=== PATIENT | male | born 1945 | race Caucasian/White ===

== ENCOUNTER 2021-09-14 21:39 | Observation (INO) ==
[2021-09-14] MEDS ORDERED: Lidocaine -MPF 2% 5 ML VIAL ONE (22:29)
[2021-09-14] MEDS ORDERED: Ondansetron 4 MG/2 ML VIAL ONE (22:29)
[2021-09-14] MEDS ORDERED: *HR* Succinylcholine 200 MG/10 ML VIAL IVP ONE (22:29)
[2021-09-14] MEDS ORDERED: *HR* Propofol 200 MG/20 ML VIAL IVP ONE (22:29)
[2021-09-14] MEDS ORDERED: *HR* FentaNYL (PF) 100 MCG/2 ML VIAL ONE ×2 (22:29→23:56)
[2021-09-14] MEDS ORDERED: Lidocaine -MPF 4% 5 ML AMPUL ONE (22:29)
[2021-09-14] MEDS ORDERED: *HR* Midazolam HCl 5 MG/5 ML VIAL IVP ONE (23:57)
[2021-09-15] MEDS: *HR* Midazolam HCl 5 MG/5 ML VIAL IVP ONE ×2 (00:25→00:30)
[2021-09-15] MEDS: *HR* FentaNYL (PF) 100 MCG/2 ML VIAL IVP ONE ×2 (00:26→00:30)
[2021-09-15] MEDS ORDERED: Ringers Solution, Lactated 1,000 ML IVC SCH (00:30)
[2021-09-15] MEDS ORDERED: Melatonin 3 MG TABLET PO PRN (01:55)
[2021-09-15] MEDS ORDERED: Naloxone 0.4 MG/ML INJ IVP PRN (01:55)
[2021-09-15] MEDS ORDERED: *HR* Dextrose 50 % in Water (Syg) 50 ML SYRINGE IVP PRN (02:00)
[2021-09-15] MEDS ORDERED: Dextrose Gel 15 GM/37.5 ML TUBE PO PRN ×2 (02:00)
[2021-09-15] MEDS ORDERED: D5% in Water 1,000 ML IVC PRN (02:00)
[2021-09-15 04:08] LABS: Hematocrit 33.1 % (37.5-50.1); Hemoglobin 10.9 g/dL (12.9-16.9); Mean Corpuscular HGB Conc 32.9 g/dL (31.6-35.5); Mean Corpuscular Hemoglobin 29.5 pg (28.0-33.3); Mean Corpuscular Volume 89.7 fL (83.0-100.0); Mean Platelet Volume 10.4 fL (9.4-12.4); Platelet Count 189 K/mcL (140-400); Red Blood Count 3.69 M/mcL (4.19-5.50); Red Cell Distribution Width 13.2 % (11.5-14.5); White Blood Count 6.4 K/mcL (4.3-11.1)
[2021-09-15 04:30] LABS: Calcium 8.9 mg/dL (8.6-10.3); Magnesium 1.7 mg/dL (1.6-2.6); Potassium 4.7 mEq/L (3.5-5.1)
[2021-09-15] MEDS: Insulin LISPRO 300 UNITS/3 ML VIAL SUBQ SCH ×2 (04:44→11:19)
[2021-09-15] MEDS ORDERED: Acetaminophen 325 MG TABLET PO PRN (07:48)
[2021-09-15] MEDS ORDERED: Insulin DETEMIR 100 UNIT/ML X5UNITS SUBQ SCH (09:00)
[2021-09-15] MEDS ORDERED: Nicotine 7 MG PATCH.TD24 TD SCH (09:00)
[2021-09-15 10:38] LABS: Estimated Average Glucose 252 mg/dl; Hemoglobin A1C 10.4 %
[2021-09-15] MEDS ORDERED: Morphine Sulfate ER (12 HR) 60 MG TABLET.ER PO PRN (11:43)
[2021-09-15] MEDS ORDERED: Aspirin Enteric Coated 81 MG Tablet PO SCH (11:45)
[2021-09-15] MEDS ORDERED: amLODIPine 5 MG TABLET PO SCH (11:45)
[2021-09-15] MEDS ORDERED: HydrOXYzine SYP 10 MG/5 ML UDC PO PRN (13:03)
[2021-09-15] MEDS ORDERED: *HR* OxyCODONE/APAP 5/325 TABLET PO PRN (13:35)
[2021-09-15] MEDS ORDERED: *HR* Heparin 5,000 UNIT/ML VIAL SQ SCH (15:00)
[2021-09-15] MEDS ORDERED: Gabapentin 300 MG CAPSULE PO SCH (15:00)
[2021-09-15] MEDS ORDERED: E-Z-HD (BARIUM SULF) SUSPENSION PO ONE (15:34)
[2021-09-15] MEDS ORDERED: E-Z-PAQUE (BARIUM SULF) SUSP 1 BOTTLE PO ONE (15:34)
[2021-09-15 16:09] VITALS: BP 101/63; PULSE 91; TEMP 97.6; O2SAT 94
== END 2021-09-15 17:24 | disposition home or self-care (01) ==
LOC: 3BNU
PROVIDERS: ADMIT Internal Medicine; ATTEND Internal Medicine
PROC: ENDOEFB (2021-09-15)